=== PATIENT | male | born 1960 | race African-American/Black ===

== ENCOUNTER 2019-12-08 06:37 | Emergency (ER) | payer SELFPAY ==
[2019-12-08 07:09] VITALS: BMI 27.1
--- NOTE | 2019-12-08 08:19 | PDOC ---
Attending Attestation - ED Attending Attestation I have performed the following: I have examined & evaluated the patient, The case was reviewed & discussed with the resident, I agree w/resident's findings & plan, Exceptions are as noted
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
[2019-12-08 12:53] VITALS: BP 172/96; PULSE 74; TEMP 97.3
== END 2019-12-08 12:52 | disposition short-term general hospital (02) ==
LOC: JER 06:37
DX: H33.22 Serous retinal detachment, left eye (principal)
CPT/HCPCS: 70480-TC; 82962; 99285-25